=== PATIENT | female | born 1975 | race Caucasian/White ===

== ENCOUNTER 2016-11-02 10:23 | Emergency (ER) | payer OTHER ==
[~2016-11-02] VITALS: Ht 154.9 cm; Wt 52.0 kg
[~2016-11-02 10:23] MED LIST: AZIT250T94 PO; CODE118S PO; IBUP800T25 PO
[2016-11-02 10:35] VITALS: Ht 154.9 cm; Wt 52.0 kg
[2016-11-02 12:24] LABS: ADD UMIC NO; URINE BILIRUBIN (Dip) NEGATIVE (NEGATIVE); URINE BLOOD (Dip) NEGATIVE (NEGATIVE); URINE COLOR LT. YELLOW (YELLOW); URINE GLUCOSE (Dip) NEGATIVE (NEGATIVE); URINE KETONES (Dip) NEGATIVE (NEGATIVE); URINE LEUKOCYTE ESTERASE (Dip) NEGATIVE (NEGATIVE); URINE NITRITE (Dip) NEGATIVE (NEGATIVE); URINE TOTAL PROTEIN (Dip) NEGATIVE (NEGATIVE); URINE UROBILINOGEN (Dip) 0.2 E.U./dL (0.1-1.0)
[2016-11-02 13:04] VITALS: TEMP 98.5
--- NOTE | 2016-11-02 13:30 | ERD ---
ER Documentation Chief Complaint Date/Time DATE: 11/02/16 TIME: 13:12 Chief Complaint intermittent vag spotting since july; pelvic pain; HPI 41-year-old female with a past medical history of lupus presents the ED complaining of vaginal spotting that occurred in August 2016. States that she had slight vaginal spotting and has not had a menses since then. Reports that she has been to [facility] with negative urine test. Patient reports that she feels like her breasts are getting bigger. States that she did follow up with [facility] and stated that she was premenopausal. She is a A2. Patient's previous surgical history of C- section, ovarian cystectomy, cholecystectomy. States that she takes prednisone 2.5 mg daily. Denies any abdominal pain, chest pain, shortness of breath, nausea, vomiting, dysuria, urgency, frequency, hematuria, flank pain. ROS All systems reviewed and are negative except as per history of present illness. Medications Home Meds Active Scripts Ibuprofen* (Motrin*) 800 Mg Tab, 800 MG PO Q6 Y for PAIN, #30 TAB Prov:SHORTY NEWMAN PA-C 02/14/16 Azithromycin* (Zithromax*) 250 Mg Tablet, 250 MG PO .ZPACK DIRECTED, #6 TAB TAKE 500 MG (2 TABS) THE FIRST DAY THEN 250 MG (1 TAB) DAYS 2-5 Prov:MAMADOU AKERS DO 11/07/15 Promethazine w/Codeine (Phenergan w/Codeine Syrup) 5 Ml Syrup, 5 ML PO Q6 Y for COUGH, #240 ML Prov:MAMADOU AKERS DO 11/07/15 Allergies Allergies: Uncoded Allergies: VACCINES (Allergy, Unknown, 11/07/15) PMhx/Soc History of Surgery: Yes (tubal ligation, gall bladder) Anesthesia Reaction: No Hx Neurological Disorder: No Hx Respiratory Disorders: No Hx Cardiac Disorders: No Hx Psychiatric Problems: Yes (depression) Hx Miscellaneous Medical Probl: Yes Hx Alcohol Use: No Hx Substance Use: No Hx Tobacco Use: No Physical Exam Vitals Vital Signs Date Time Temp Pulse Resp B/P Pulse Ox O2 Delivery O2 Flow Rate FiO2 11/02/16 13:04 98.5 11/02/16 10:35 97.8 101 18 142/94 98 Physical Exam Const: Bee-jir-bwpotcele, well-nourished. In no acute distress. Head: Atraumatic, normocephalic Eyes: Normal Conjunctiva without injection. No purulent discharge. ENT: Normal external ear, nose. Moist oropharynx without tonsillar exudates. Non -erythematous pharynx. Uvula midline. No drooling. No trismus. Neck: No cervical midline tenderness. Full range of motion. No meningismus. No cervical lymphadenopathy. No JVD. Resp: Clear to auscultation bilaterally. No wheezing, rhonchi, rales, or crackles. No accessory muscle use. No retractions. Cardio: Regular rate and rhythm. No murmurs, rubs or gallops. Abd: Soft, nontender, non distended. Normal bowel sounds. No palpable masses. No rebound tenderness. No guarding. Negative McBurney's point. Negative psoas sign. Negative obturator sign. Skin: No petechiae or rashes Back: No midline tenderness. No CVA tenderness. Ext: No cyanosis, or edema. Neur: Awake and alert. Normal gait. Normal coordination. Psych: Normal Mood and Affect Results 24 hrs Laboratory Tests Test 11/02/16 12:00 Urine Bilirubin NEGATIVE Urine Clarity CLEAR Urine Color LT. YELLOW Urine Glucose NEGATIVE% Urine Hemoglobin NEGATIVE Urine Ketones NEGATIVE Urine Leukocyte Esterase NEGATIVE Urine Nitrite NEGATIVE Urine Specific [place] 1.010 Urine Total Protein NEGATIVE Urine Urobilinogen 0.2 E.U./dL Urine pH 5.5 Procedures/MDM This is a 41-year-old female with a past medical history of lupus presents the ED complaining of not having her menses since August 2016. Patient is afebrile and nontoxic-appearing. Patient could likely be premenopausal vs. dysfunctional uterine bleeding, she has no active vaginal bleeding at this time. No indication for a CBC. Patient does not have any abdominal pain. No indication for an ultrasound at this time. Urinalysis shows no leukocyte esterase, hematuria, nitrite. Negative urine test here in the ED. An ultrasound, beta-hCG, CBC, type and RH, UA was ordered to evaluate patient.Low suspicion for symptomatic anemia, ectopic , sepsis, PID, appendicitis, ovarian torsion, tubo-ovarian abscess, surgical abdomen, or other emergent conditions. Patient to follow up with [facility] in 2 days for further evaluation and treatment. Patient is to return sooner to the ED for any worsening symptoms. Patient's questions were answered. Patient understood and agreed with discharge plan. Departure Diagnosis: Primary Impression: Irregular menstruation, unspecified Condition: Stable Patient Instructions: Understanding Menopause, Dysfunctional Uterine Bleeding Referrals: COMMUNITY CLINICS YOU HAVE RECEIVED A MEDICAL SCREENING EXAM AND THE RESULTS INDICATE THAT YOU DO NOT HAVE A CONDITION THAT REQUIRES URGENT TREATMENT IN THE EMERGENCY DEPARTMENT. FURTHER EVALUATION AND TREATMENT OF YOUR CONDITION CAN WAIT UNTIL YOU ARE SEEN IN YOUR DOCTORS OFFICE WITHIN THE NEXT 1-2 DAYS. IT IS YOUR RESPONSIBILITY TO MAKE AN APPOINTMENT FOR FOLOW-UP CARE. IF YOU HAVE A PRIMARY DOCTOR --you should call your primary doctor and schedule an appointment IF YOU DO NOT HAVE A PRIMARY DOCTOR YOU CAN CALL OUR PHYSICIAN REFERRAL HOTLINE AT IF YOU CAN NOT AFFORD TO SEE A PHYSICIAN YOU CAN CHOSE FROM THE FOLLOWING [facility] [address] [employer] [facility]. [facility] [address] [employer] [facility]. [facility] [address] [facility] [address] [facility] [address] [facility]. [facility]. [address] [facility]. [facility] YOU HAVE RECEIVED A MEDICAL SCREENING EXAM AND THE RESULTS INDICATE THAT YOU DO NOT HAVE A CONDITION THAT REQUIRES URGENT TREATMENT IN THE EMERGENCY DEPARTMENT. FURTHER EVALUATION AND TREATMENT OF YOUR CONDITION CAN WAIT UNTIL YOU ARE SEEN IN YOUR DOCTORS OFFICE WITHIN THE NEXT 1-2 DAYS. IT IS YOUR RESPONSIBILITY TO MAKE AN APPOINTMENT FOR FOLOW-UP CARE. IF YOU HAVE A PRIMARY DOCTOR --you should call your primary doctor and schedule and appointment IF YOU DO NOT HAVE A PRIMARY DOCTOR YOU CAN CALL OUR PHYSICIAN REFERRAL HOTLINE AT . IF YOU CAN NOT AFFORD TO SEE A PHYSICIAN YOU CAN CHOSE FROM THE FOLLOWING [facility] INSTITUTIONS: [facility] [address] [place] [address] [facility] [address] [place] [address] [facility] [address] [place] [address] [facility] [employer] [address] [facility] [address] [place] [address] OFFICE FAX , MARY [address] [place] [address] [address] [place] [address] [place] [address] [address] [facility] [address], [address], [facility] [address] [address] [place] [address] [facility] [address] [place] [address] [address] [facility] [id number] - [place] FRANCIS [address], [facility] [address] [address], [place] [address] [facility]. [address], [facility] [address] [address] [facility] [address] [place], [place] [id number] [facility] Hours: 8:00 am - 5:00 pm Additional Instructions: FOLLOW UP WITH YOUR PRIMARY CARE PHYSICIAN TOMORROW for a referral to OB/ [facility].Return to this facility if you are not improving as expected. FRANCK WOOD PA-C Nov 02, 2016 13:30
== END 2016-11-02 13:04 | disposition home or self-care (01) ==
LOC: FTE 10:23
DX: N92.6 Irregular menstruation, unspecified (principal)
CPT/HCPCS: 81003; Z7502; 99283